=== PATIENT | female | born 1970 | race Caucasian/White ===

== ENCOUNTER 2019-01-16 10:45 | Outpatient (REF) | payer BC, SELFPAY ==
--- NOTE | 2019-01-16 09:20 | PAPFT_PTH ---
PATIENT: Carlie Cool LOC: [facility] U#:[id number] AGE/SX: 48/F ROOM: RE01/16/[address]: KELLE Bailey : 1970 BED: DIS: 01/16/2019 SPEC #: [id number] RECD: 01/16/19 13:03 STATUS: KENIA REMiguel #: [id number] NIRAJ: 01/16/19 09:[address]: Leydi Manning DEPT: [facility] Cytology RECD BY: Nikole Irizarry ENTERED: 01/16/19 13:03 SP TYPE: PAPFT OTHR DR: Lulú Foster Tissues: 1 - CX/ENDOCX FOR PAP SMEARS Procedures: PAP THIN PREP/UVM Screening HPV DNA PROBE Comments: [id number]
== END 2019-01-16 11:05 ==
LOC: LBN 10:45
PROVIDERS: PCP Nurse Practitioner Family; Visit Provider Nurse Practitioner Family
DX: Z12.4 Encounter for screening for malignant neoplasm of cervix (principal); Z11.51 Encounter for screening for human papillomavirus (HPV)
CPT/HCPCS: 88142; 87624

== ENCOUNTER 2019-04-09 00:49 | Outpatient (CLI) | payer BC, SELFPAY ==
[2019-04-09 08:42] LABS: HCT 43.1 % (36.0-46.0); HGB 14.1 g/dL (12.0-15.5); Mean Corp. HGB Concentration 32.7 g/dL (32.0-36.0); Mean Corpuscular Hemoglobin 32.6 pg (27.0-33.0); Mean Corpuscular Volume 99.5 fL (80-95); Mean Platelet Volume 11.5 fL (8.0-11.0); Platelet Count 170 x1000/uL (130-400); RBC 4.33 m/cumm (4.00-5.20); White Blood Cell Count 5.57 k/cumm (4.4-10.8)
--- NOTE | 2019-04-09 08:48 | DI.MAMMO_ITS ---
SYMPTOM/DIAGNOSIS: SCREENING Z12.31 MAMMOGRAM: 04/09 Mammograms were interpreted according to the usual protocol including computer analysis with CAD system, tomosynthesis and C view imaging. The breasts are heterogeneously dense. Examination is compared with previous examinations including December 2016. Note is again made of a bi-lobed mass or masses of the medial central portion of the right breast seen on both CC and MLO views. The masses appear slightly smaller than on previous examinations. No new mass or clumped microcalcification identified in either breast. Two biopsy clips lie adjacent to the masses in the right breast. CONCLUSION: No specific evidence of malignancy at this time. Follow up mammogram requested in 12 months to re-evaluate apparently stable right breast mass or masses. Category 2, breast density category C. MQSA ASSESSMENT OF FINDINGS: Negative with benign findings. Category 2. Patient will receive a letter notifying them of these results. Bi-RADS category C. The breasts are heterogeneously dense, which may obscure small masses.
[2019-04-09 09:39] LABS: ALT 18 U/L (12-78); AST 11 U/L (15-37); Albumin 4.2 g/dL (3.4-5.0); Alkaline Phosphatase 43 U/L (46-116); Anion Gap 8.5 mmol/L (3-11); BUN 15 mg/dL (7-18); Bilirubin, Total 0.5 mg/dL (0.2-1.0); CO2 27.5 mmol/L (21.0-32.0); Calcium 9.2 mg/dL (8.5-10.1); Calculated LDL 72 mg/dL; Chloride 104 mmol/L (98-107); Cholesterol 128 mg/dL (50-200); Glucose 91 mg/dL (70-100); HDL Cholesterol 49 mg/dL (40-60); Potassium 4.5 mmol/L (3.5-5.1); Sodium 140 mmol/L (136-145); Triglyceride 39 mg/dL (30-150)
== END 2019-04-09 01:09 ==
PROVIDERS: Registered Nurse; PCP Nurse Practitioner Family; Visit Provider Nurse Practitioner Family
DX: Z12.31 Encounter for screening mammogram for malignant neoplasm of breast (principal); N63.10 Unspecified lump in the right breast, unspecified quadrant; Z00.00 Encounter for general adult medical examination without abnormal findings; Z13.220 Encounter for screening for lipoid disorders; Z13.228 Encounter for screening for other metabolic disorders
CPT/HCPCS: 36415; 77063; 77067; 80053; 80061; 83721; 85027

== ENCOUNTER 2020-05-03 01:15 | Outpatient (CLI) | payer BC, SELFPAY ==
--- NOTE | 2020-05-03 08:30 | DI.MAMMO_ITS ---
EXAM: MG MAMMO SCREENING CLINICAL HISTORY: screening TECHNIQUE: Bilateral full field digital CC and MLO mammographic images were obtained with 3D tomosyn thesis and utilizing computer aided detection (CAD). COMPARISON: Available for comparison. FINDINGS: Masses/Architectural Distortion: None seen. The bilobed mass in central right breast is unchanged. T he biopsy clips in the right breast are stable in location. Microcalcifications: No suspicious pleomorphic-type are seen. Skin Thickening/Nipple Retraction: None. IMPRESSION: 1. No significant interval change with no specific features of malignancy noted. 2. Unless there is more urgent need, screening mammography is recommended, as per [place] [employer] guidelines. BI-RADS Category 2 - Benign Findings Breast Density - Category C - Heterogeneously dense The mammogram demonstrates the patient's breast tissue is dense. Dense breast tissue is very common a nd is not abnormal but dense breast tissue can make it harder to find cancer on a mammogram. Also, de nse breast tissue may increase their breast cancer risk. This information about the result of the [facility] mogram report was provided to the patient to raise their awareness. Use this report when you speak wi th the patient about their risks for breast cancer, which includes their family history. At that time , you may recommend for more screening tests (Ultrasound or MRI) as they might be useful based on the ir risk. A negative radiographic report should not delay biopsy if a dominant or clinically suspicious mass is present. Up to ten percent of cancers are not identified on mammography. A negative report may reinforce clinical impression. Adenosis and dense breasts may obscure an underlying neoplasm. False positive reports average 6 to 10%. Patient will receive a letter notifying them of these results.
== END 2020-05-03 01:35 ==
PROVIDERS: PCP Nurse Practitioner Family; Visit Provider Nurse Practitioner Family
DX: Z12.31 Encounter for screening mammogram for malignant neoplasm of breast (principal)
CPT/HCPCS: 77063; 77067

== ENCOUNTER 2021-06-13 01:16 | Outpatient (CLI) | payer BC, SELFPAY ==
--- NOTE | 2021-06-13 08:30 | DI.MAMMO_ITS ---
Exam(s) MAMMO SCREENING EXAM: MAMMO SCREENING CLINICAL HISTORY: screening TECHNIQUE: Bilateral full field digital CC and MLO mammographic images were obtained with 3D tomosyn thesis and utilizing computer aided detection (CAD). COMPARISON: Available for comparison. FINDINGS: Masses/Architectural Distortion: The bilobed right breast mass is unchanged compared to prior examina tions. There are biopsy clips seen in the upper inner quadrant of the right breast which appears sta ble. No suspicious masses or areas of architectural distortion are identified. Microcalcifications: No suspicious pleomorphic-type are seen. Skin Thickening/Nipple Retraction: None. IMPRESSION: 1. No significant interval change with no specific features of malignancy noted. 2. Unless there is more urgent need, screening mammography is recommended, as per [place] [employer] guidelines. BI-RADS Category 2 - Benign Findings Breast Density - Category C - Heterogeneously dense Breast density category C or D implies that the patient has dense breast tissue. Dense breast tissue is very common and is not abnormal but dense breast tissue can make it harder to find cancer on a ma mmogram. Also, dense breast tissue may increase their breast cancer risk. This information about the result of the mammogram report was provided to the patient to raise their awareness. Use this report when you speak with the patient about their risks for breast cancer, which includes their family hist ory. At that time, you may recommend for more screening tests (Ultrasound or MRI) as they might be us eful based on their risk. A negative radiographic report should not delay biopsy if a dominant or clinically suspicious mass is present. Up to ten percent of cancers are not identified on mammography. A negative report may reinforce clinical impression. Adenosis and dense breasts may obscure an underlying neoplasm. False positive reports average 6 to 10%. Patient will receive a letter notifying them of these results.
== END 2021-06-13 01:36 ==
PROVIDERS: PCP Nurse Practitioner Family; Visit Provider Nurse Practitioner Family
DX: Z12.31 Encounter for screening mammogram for malignant neoplasm of breast (principal)
CPT/HCPCS: 77063; 77067

== ENCOUNTER 2022-04-30 09:07 | Outpatient (REF) | payer BC, SELFPAY ==
--- NOTE | 2022-04-30 08:30 | PAPFT_PTH ---
PATIENT: Carlie Cool LOC: [facility] U#:[id number] AGE/SX: 51/F ROOM: RE04/30/[address]: KELLE Bailey : 1970 BED: DIS: 04/30/2022 SPEC #: [id number] RECD: 04/30/22 13:09 STATUS: KENIA REMiguel #: [id number] NIRAJ: 04/30/22 08:[address]: Leydi Manning DEPT: [facility] Cytology RECD BY: Nikole Irizarry ENTERED: 04/30/22 13:09 SP TYPE: PAPFT OTHR DR: Lulú Foster Tissues: 1 - CX/ENDOCX FOR PAP SMEARS Procedures: PAP THIN PREP/UVM Screening HPV DNA PROBE Comments: [id number]
== END 2022-04-30 09:08 | disposition home or self-care (01) ==
LOC: LBN 09:07
PROVIDERS: PCP Nurse Practitioner Family; Visit Provider Nurse Practitioner Family
DX: Z12.4 Encounter for screening for malignant neoplasm of cervix (principal)
CPT/HCPCS: 88142; 87624

== ENCOUNTER → 2022-09-14 00:25 | Outpatient (CLI) | payer BC, SELFPAY ==
--- OUTSIDE RECORDS SUMMARY | 2022-09-14 00:27 | XMS_ITS | Encounter Summary ---
:1970 [place] [address] Care Team Providers Name Role Phone Tahira Sargent [facility] Primary Care Provider Reason for Visit Diagnostic Test (Routine) - Closed Specialty Diagnoses / Procedures Referred By Contact Refer red To Contact Vascular Surgery Diagnoses SAPHENOUS INSUFFICIENCY - LEFT LEG - PATENCY FOR DEEP SYSTEM Kaleb Escoto [facility] Vascular Lab 3v Procedures SAPHENOUS INSUFFICIENCY - LEFT LEG - PATENCY FOR DEEP SYSTEM S, DO [facility] [address] [place] [id number] Referral ID Status Reason Start Date Expiration Date Visits Requ ested Visits Authorized [id number] Closed 08/30/2017 08/30/2018 1 1 Encounter Details Date Type Department Care Team Description 09/10/2017 Hospital Encounter Vascular Lab at [place], Venous insufficiency [place] [id number] Social History Tobacco Use Types Packs/Day Years Used Date Smoking Tobacco: Never Assessed Sex Assigned at Date Recorded Not on file documented as of this encounter Plan of Treatment Not on filedocumented as of this encounter Procedures Procedure Name Priority Date/Time Associated Diagnosis Comme nts UNLATERAL VALVULAR Routine 09/10/2017 1:34 PM Venous insuffici ency Results for this INCOMP EST of left leg procedure are i n the results section. documented in this encounter Results LE Unilateral Valvular Incomp Study (09/10/2017 1:34 PM EST) Component Value Ref Test Analysis Performed At [facility] Range Method Time Signature VB Text Department: Vascular Surgery Lab VASCUBASE Report Patient: [id number] (CARLIE GRIMALDO) CPT: 57302 ICD10: I87.2;I83.813 Referring Physician: KALEB ESCOTO ?? Phone: Indications: 46 year old female with sym ptomatic LEFT lower extremity varicose veins, ? venous reflux ICD10 Diagnosis Code: I87.2, I83.813 Findings: Left ? Reflux?Diameter (mm) ? ?Depth (mm) ?? Common Femoral Vein ?Ref lux ? Femoral Vein ? Competent ? Popliteal ?Competent ? Posterior Tibial Vein ??Competent ? GSV, Near SFJ ?Reflux ? 7.0 ? 7.8 ?? GSV, Proximal Thigh ?Reflux ?14.6 ?11.8 ?? GSV, Mid Thigh ? Reflux ? 5.8 ? 8.8 ?? GSV, Distal Thigh ?Reflux ?1 0.9 ? 7.2 ?? GSV, ??Knee ? Reflux ? 6.5 ? 6.4 ?? GSV Prox Calf ?Reflux ? 5.7 ? 7.7 ?? SSV ?Competent ? Interpretation: LEFT: There is reflux >2.9 seconds in the common femor al vein. There is also superficial venous reflux >2.9 seconds in the great saphen ous vein from the level of the saphenofemoral junction to the proximal/mid jennifer f. There are multiple incompetent varicose veins associated w ith the GSV from the proximal anteromedial calf to the mid/distal anterior calf. No significant reflux noted in the femoral vein in the thi gh, the popliteal vein, the paired posterior tibial veins or the short sapheno us vein. No evidence of deep or superficial venous thrombus. Comparison: ??No previous study in our vascular lab da tabase for comparison. Electronically Signed by: MOLLY PALMA on 2017-09-11 09:45: 45 PM VB Text End of Report VASCUBASE Report Specimen (Source) Anatomical Collection Method Collection Time Re ceived Time Location / / Volume Laterality 09/10/2017 1:34 PM EST Kaleb Escoto DO VASCULAR ORDERABLES Performing Organization Address City/State/ZIP Code Phon e Number VASCUBASE documented in this encounter Visit Diagnoses Diagnosis Venous insufficiency of left leg documented in this encounter Care Teams Leak Detector Relationship Specialty Start Date End Date Tahira Sargent CNM PCP - General 09/05/10 [address] [place] [address] documented as of this encounter
--- OUTSIDE RECORDS SUMMARY | 2022-09-14 00:27 | XMS_ITS | Clinical Summary ---
:1970 Author Organization [employer] [place] [address] Care Team Providers Name Role Phone Tahira Sargent CNM Primary Care Provider Allergies No known active allergies Medications No known medications Active Problems Problem Noted Date Perioral dermatitis 03/02/2013 Xerosis cutis 03/02/2013 Social History Tobacco Use Types Packs/Day Years Used Date Smoking Tobacco: Never Assessed Sex Assigned at Date Recorded Not on file Plan of Treatment Health Maintenance Due Date Last Done Comments Hepatitis B vaccine (0-59 yrs) (1 of 3 - 3-dose series) 12/25/18 73 Covid-19 Vaccine (#1) 06/27/1972 HIV screen 12/25/1989 Hepatitis C Screening 12/25/1989 Tdap adult 12/25/1990 Tetanus vaccine 12/25/1990 HPV test 12/25/2001 PAP Smear 12/25/2001 Breast Cancer Share Decision Needed 2011 Colonoscopy 12/25/2016 Breast Cancer screening 12/25/2021 Zoster vaccine (1 of 2) 12/25/2021 Influenza (Flu) vaccine (1 of 1 - Influenza standard 06/14/2022 series) Care Teams Maintenance Porter Relationship Specialty Start Date End Date Tahira Sargent CNM PCP - General 09/05/10 [address] [place] [address]
--- OUTSIDE RECORDS SUMMARY | 2022-09-14 00:27 | XMS_ITS | Encounter Summary ---
:1970 Author Organization [facility] [place] [address] Care Team Providers Name Role Phone Tahira Sargent [facility] Primary Care Provider Reason for Visit Reason Comments Skin Check Encounter Details Date Type Department Care Team Description 03/02/2013 Office Visit Dermatology Alverto Wynn, Perioral dermatitis (Primary Dx); [address] [facility] Xerosis cutis [address] [place], [place] DERMATOLOGY [address] [place] [address] [phone] (Wo rk) Social History Tobacco Use Types Packs/Day Years Used Date Smoking Tobacco: Never Assessed Sex Assigned at Date Recorded Not on file documented as of this encounter Progress Notes Alverto Wynn MD - 03/02/2013 10:28 AM EDT Problem is new rash. Carlie follows up after last being seen by me in 2009 and has now had for seven weeks a red papular dermatitis just on the left upper nasolabial fold area. She is 42. She has not been through a lot of stress recently. Things are going well at work and at home. There has been no change in her facial cosmetics. She has been doing no traveling. She has had no issues. She states that when the rash first developed she used a corticosteroid cream, which seemed to help for a couple or three days, but then things got worse. She was given what she thinks was an antibiotic ointment, and this also did not help. She also wonders what can be done for dry skin of her hands, which is a problem every late winter and spring. She has been trying to use some Aveeno lotion but without benefit. Physical examination reveals a dry, xerotic dermatitis of the palmar aspect of both hands consistent with xerosis. Examination of her face reveals a fair skinned, blue eyed, blonde haired woman with papules coalescing into a small patch plaque on the left nasolabial fold on the upper lip area. It is consistent with perioral dermatitis. She also has a single papule on the right nasolabial fold. None on the eyelids, none on her chin, no dermatitis elsewhere. Assessment and Plan: 1. Perioral dermatitis. a. Discussed diagnosis. Informational brochure given. b. Recommend that we begin minocycline 50 mg, take one p.o. b.i.d. for four weeks, then one p.o. q.day two weeks, then discontinue. #75 dispensed with zero refills. c. Would advise patient against use of topical corticosteroid creams or antibiotic creams to this site. Could consider topical clindamycin for control of any mild recurrence if necessary, but expressed my optimism that the minocycline should clear her and put this into remission quite successfully. Take first minocycline dose at bedtime. Warned about vestibulitis as a possible side effect. Discussed dietary recommendations for taking minocycline. 2. Xerosis, hands. a. Discussed avoiding wet work without gloves. Recommended use of CeraVe cream on a regular basis for dry skin and hands. Obtain ubry-jir-[id number] 1-pound jar. Return to clinic here p.r.n. COPY: Tahira Sargent C.N.M. documented in this encounter Plan of Treatment Not on filedocumented as of this encounter Visit Diagnoses Diagnosis Perioral dermatitis - Primary Rosacea Xerosis cutis Other specified disease of sebaceous gla nds documented in this encounter Care Teams Credit Reporting Clerk Relationship Specialty Start Date End Date Tahira Sargent CNM PCP - General 09/05/10 [address] [place] [address] documented as of this encounter
--- NOTE | 2022-09-14 08:25 | DI.MAMMO_ITS ---
Exam(s) MAMMO SCREENING EXAM: MAMMO SCREENING CLINICAL HISTORY: screening,Z12.39 TECHNIQUE: Mammograms were interpreted according to the usual protocol including computer analysis w [employer] CAD system, tomosynthesis and C-view imaging. COMPARISON: 2016 through 2020 FINDINGS: The breasts are composed of heterogeneously dense fibroglandular densities, Breast Density category C . No suspicious masses or suspicious microcalcifications are seen. There has been no change in 2 circu mscribed nodules with adjacent biopsy clips in the medial right breast. Additional stable nodule see n in the superior right breast. No skin thickening or abnormal axillary lymph nodes are seen. There has been no significant change from prior exams. IMPRESSION: BI-RADS Category 1, Negative mammogram. Yearly screening mammography is recommended. Breast Density Category C, heterogeneously Dense. The mammogram demonstrates the patient's breast tissue is dense. Dense breast tissue is very common a nd is not abnormal but dense breast tissue can make it harder to find cancer on a mammogram. Also, de nse breast tissue may increase breast cancer risk. This information about the result of the mammogram report was provided to the patient to raise their awareness. Use this report when you speak with the patient about their risks for breast cancer, which includes their family history. At that time, you may recommend additional screening tests (Ultrasound or MRI) as they might be useful based on their r isk. A negative radiographic report should not delay biopsy if a dominant or clinically suspicious mass is present. Up to ten percent of cancers are not identified on mammography. A negative report may reinforce clinical impression. Adenosis and dense breasts may obscure an underlying neoplasm. False positive reports average 6 to 10%.
== END ==
PROVIDERS: PCP Nurse Practitioner Family; Visit Provider Nurse Practitioner Family
DX: Z12.31 Encounter for screening mammogram for malignant neoplasm of breast (principal); R92.8 Other abnormal and inconclusive findings on diagnostic imaging of breast
CPT/HCPCS: 77063; 77067

== ENCOUNTER → 2023-09-25 02:02 | Outpatient (CLI) | payer BC, SELFPAY ==
--- NOTE | 2023-09-25 10:35 | DI.MAMMO_ITS ---
Exam(s) MAMMO SCREENING EXAM: MAMMO SCREENING CLINICAL HISTORY: screening TECHNIQUE: Mammograms were interpreted according to the usual protocol including computer analysis w [employer] CAD system, tomosynthesis and C-view imaging. COMPARISON: 2016 through 2021 FINDINGS: The breasts are composed of heterogeneously dense fibroglandular densities, Breast Density category C . No suspicious masses or suspicious microcalcifications are seen. Areas of nodularity with adjacent b iopsy clips are again noted in the right breast. No skin thickening or abnormal axillary lymph nodes are seen. There has been no significant change from prior exams. IMPRESSION: BI-RADS Category 2 - Negative Mammogram with benign findings. Yearly screening mammography is recom mended. Breast Density Category C, heterogeneously Dense. The mammogram demonstrates the patient's breast tissue is dense. Dense breast tissue is very common a nd is not abnormal but dense breast tissue can make it harder to find cancer on a mammogram. Also, de nse breast tissue may increase breast cancer risk. This information about the result of the mammogram report was provided to the patient to raise their awareness. Use this report when you speak with the patient about their risks for breast cancer, which includes their family history. At that time, you may recommend additional screening tests (Ultrasound or MRI) as they might be useful based on their r isk. A negative radiographic report should not delay biopsy if a dominant or clinically suspicious mass is present. Up to ten percent of cancers are not identified on mammography. A negative report may reinforce clinical impression. Adenosis and dense breasts may obscure an underlying neoplasm. False positive reports average 6 to 10%.
== END ==
PROVIDERS: Visit Provider Nurse Practitioner Women's Health
DX: Z12.31 Encounter for screening mammogram for malignant neoplasm of breast (principal)
CPT/HCPCS: 77063; 77067

== ENCOUNTER 2025-03-02 00:49 | Outpatient (CLI) | payer BC, SELFPAY ==
--- NOTE | 2025-03-02 12:58 | DI.MAMMO_ITS ---
Exam(s) MAMMO SCREENING EXAM: MAMMO SCREENING CLINICAL HISTORY: screening Z12.39 TECHNIQUE: Mammograms were interpreted according to the usual protocol including computer analysis w [employer] CAD system, tomosynthesis and C-view imaging. COMPARISON: 2016 through 2022 FINDINGS: The breasts are composed of heterogeneously dense fibroglandular densities, Breast Density category C . No suspicious masses or suspicious microcalcifications are seen. Two biopsy marker clips are noted a djacent to 2 adjacent nodules in the upper outer central right breast. There is a question of a nodu lar asymmetry in the central posterior left breast on the CC view which could represent overlying fib roglandular tissue. No definite corresponding abnormality seen on the MLO view. Spot compression vi ews and ultrasound are requested for further evaluation. No skin thickening or abnormal axillary lymph nodes are seen. IMPRESSION: BI-RADS Category 0 - Incomplete: Need additional imaging evaluation Breast Density Category C, heterogeneously Dense. Breast density Category C or D implies that the patient has dense breast tissue. Dense breast tissue can make it harder to find cancer on a mammogram. Dense breast tissue is also associated with an incr eased risk of breast cancer. This information about the result of the mammogram report was provided to the patient to raise their awareness. Use this report when you speak with the patient about their risks for breast cancer, which includes their family history. At that time, you may recommend additional screening tests (Ultrasoun d or MRI) as these tests may add significant information. A negative radiographic report should not delay biopsy if a dominant or clinically suspicious mass is present. Up to ten percent of cancers are not identified on mammography. A negative report may reinforce clinical impression. Adenosis and dense breasts may obscure an underlying neoplasm. False positive reports average 6 to 10%.
== END 2025-03-02 01:09 ==
PROVIDERS: PCP Nurse Practitioner Family; Visit Provider Nurse Practitioner Women's Health
DX: Z12.31 Encounter for screening mammogram for malignant neoplasm of breast (principal); R92.333 Mammographic heterogeneous density, bilateral breasts
CPT/HCPCS: 77063; 77067

== ENCOUNTER 2025-03-10 00:15 | Outpatient (CLI) | payer BC, SELFPAY ==
--- NOTE | 2025-03-10 | DI.US_ITS ---
Exam(s) MG MAMMO SCREEN CALL BACK UNI US BREAST LT COMPLETE EXAM: MG MAMMO SCREEN CALL BACK UNI CLINICAL HISTORY: F/U ABNL MAMMO, NDOULAR DENSITY CENTRAL POSTERIOR LT BREAST, R92.8. TECHNIQUE: Craniocaudal and mediolateral oblique spot compression digital Mammography views of the l eft breast followed by Tomosynthesis and left breast ultrasound. COMPARISON: 2018 through 2022 FINDINGS: Mammography/Tomosynthesis: Masses/Architectural Distortion: None seen. No persistent abnormalities seen in the posterior left breast. Microcalcifictions: No suspicious pleomorphic-type are seen. Skin Thickening/Nipple Retraction: None. Left breast US: Echotexture: Normal appearance of the glandular tissue. Shadowing: No suspicious foci. Cyst: None. Solid lesions: None seen. Ductal dilation: Mildly dilated ducts in the subareolar region. IMPRESSION: 1. No evidence of malignancy is noted. Mildly dilated ducts in the subareolar region. 2. Unless there is more urgent need, follow-up screening mammography is recommended, as per [place] [employer] guidelines. 3. The findings were discussed with the patient on the date of the examination. BI-RADS Category 2 - Benign Findings Breast Density - Category C - The breast are heterogeneously dense, which may obscure small masses. Breast density Category C or D implies that the patient has dense breast tissue. Dense breast tissue can make it harder to find cancer on a mammogram. Dense breast tissue is also associated with an incr eased risk of breast cancer. This information about the result of the mammogram report was provided to the patient to raise their awareness. Use this report when you speak with the patient about their risks for breast cancer, which includes their family history. At that time, you may recommend additional screening tests (Ultrasoun d or MRI) as these tests may add significant information. A negative radiographic report should not delay biopsy if a dominant or clinically suspicious mass is present. Up to ten percent of cancers are not identified on mammography. A negative report may reinforce clinical impression. Adenosis and dense breasts may obscure an underlying neoplasm. False positive reports average 6 to 10%. Patient will receive a letter notifying them of these results.
== END 2025-03-10 00:35 ==
LOC: DI 00:15
PROVIDERS: PCP Nurse Practitioner Family; Visit Provider Nurse Practitioner Women's Health
DX: Z12.31 Encounter for screening mammogram for malignant neoplasm of breast (principal); R92.333 Mammographic heterogeneous density, bilateral breasts; D24.2 Benign neoplasm of left breast
CPT/HCPCS: 76642; 77063; 77067

== ENCOUNTER 2025-10-12 14:47 | Outpatient (REF) | payer BC, SELFPAY ==
--- NOTE | 2025-10-12 14:20 | PAPFT_PTH ---
PATIENT: Carlie Cool LOC: [facility] U#:[id number] AGE/SX: 54/F ROOM: RE10/12/[address]: Lissette Arevalo NP : 1970 BED: DIS: 10/12/2025 SPEC #: [id number] RECD: 10/12/25 18:33 STATUS: KENIA REMiguel #: [id number] NIRAJ: 10/12/25 14:[address]: Mickey PIERCE,Lissette DEPT: [facility] Cytology RECD BY: Nikole Irizarry ENTERED: 10/12/25 18:33 SP TYPE: PAPFT OTHR DR: Viviana Perdomo Tissues: 1 - CX/ENDOCX FOR PAP SMEARS Procedures: PAP THIN PREP/UVM Screening HPV DNA PROBE Comments: [id number] (HPV 16 & 18/45)
== END 2025-10-12 14:48 | disposition home or self-care (01) ==
LOC: LBN 14:47
PROVIDERS: PCP Nurse Practitioner Family; Visit Provider Nurse Practitioner Women's Health
DX: Z12.4 Encounter for screening for malignant neoplasm of cervix (principal)
CPT/HCPCS: 88142; 87624